=== PATIENT | female | born 1980 | race Caucasian/White ===

== ENCOUNTER → 2017-06-21 10:00 | Outpatient (CLI) | payer OTHER | END | disposition home or self-care (01) | LOC: D.US 10:00 | DX: E04.9 Nontoxic goiter, unspecified (principal) ==

== ENCOUNTER 2018-01-21 05:30 | Day surgery (SDC) | payer OTHER ==
[2018-01-17 10:19] LABS: BASOPHILS 0.5 % (0-2); EOSINOPHILS 1.6 % (0-7); HEMATOCRIT 34.7 % (36.0-48.0); HEMOGLOBIN 10.8 g/dL (12-16); IMMATURE GRANULOCYTES 0.3 % (0-5); LYMPHOCYTES 25.9 % (15-50); MCHC 31.1 g/dL (31.0-37.0); MCV 77.1 fL (80.0-100.0); MEAN PLATELET VOLUME 8.8 fL (7.4-10.4); MONOCYTES 7.3 % (2-11); NEUTROPHILS 64.4 % (40-80); PLATELET COUNT 331 10x3/uL (130-400); RDW 14.9 % (11.5-14.5); WBC 7.4 10x3/uL (4.8-10.8)
[2018-01-17 10:26] LABS: CALC OSMOLALITY 278 mosm/kg (275-300); CALCIUM 8.9 mg/dL (8.5-10.1); CARBON DIOXIDE 30.3 mmol/L (21.0-32.0); CHLORIDE - SERUM 103 mmol/L (98-107); CREATININE - SERUM 0.8 mg/dL (0.6-1.3); GLUCOSE 99 mg/dL (74-106); SODIUM 141 mmol/L (136-145); UREA NITROGEN 7 mg/dL (7-18); eGFR NON AFRICAN AMERICAN 85 mL/min (90-120)
[~2018-01-21] VITALS: Ht 162.6 cm; Wt 73.5 kg
--- NOTE | ~2018-01-21 | OP ---
PATIENT NAME: ARNOLDO REDDY MEDICAL RECORD: [id number] :76 LOCATION:[id number] ADMISSION DATE: SURGEON: PASTOR CUNNINGHAM MD DATE OF OPERATION: 01/21/2018 PREOPERATIVE DIAGNOSES: 1. Dysfunctional uterine bleeding. 2. Chronic pelvic pain. 3. Chronic left-sided pelvic pain. POSTOPERATIVE DIAGNOSES: 1. Dysfunctional uterine bleeding. 2. Chronic pelvic pain. 3. Chronic left-sided pelvic pain. PROCEDURE: 1. Diagnostic laparoscopy. 2. Right salpingectomy. 3. Laparoscopic subtotal hysterectomy. 4. Left salpingo-oophorectomy. SURGEON: Pastor Cunningham MD ANESTHESIOLOGIST: Dr. Ford ANESTHETIC: General. FINDINGS: Uterus is enlarged and boggy, finding suspicious for adenomyosis. The tubes are interrupted and otherwise unremarkable bilaterally. Right and left ovaries are also unremarkable. No active endometriosis is identified in the pelvis. SPECIMENS REMOVED: 1. Uterus without cervix. 2. Left ovary. 3. Bilateral tubes. SPECIMEN DISPOSITION: To Pathology. ESTIMATED BLOOD LOSS: Less than or equal to 100 cc. ESTIMATED BLOOD LOSS: 1500 cc of lactated Ringer's. URINE OUTPUT: 250 cc of clear urine. COMPLICATIONS: None. DRAINS: Flores to gravity. INDICATIONS: The patient is a 37-year-old female with tubal ligation for control with heavy periods and painful periods. The cycles are negative impact on quality of life. The patient has tried conservative therapy without resolution of her symptoms and desires definitive treatment. DESCRIPTION OF PROCEDURE: After informed consent, the patient was taken to the OPERATIVE REPORT [id number] ARNOLDO REDDY operating room where anesthetic was obtained without difficulty. The patient was supine on the table and prepped and draped in the usual sterile fashion after Flores was started. An incision was made at the umbilicus to accommodate a 5-mm trocar, which was inserted without difficulty and pneumoperitoneum developed. The patient was now in Trendelenburg position and accessory ports were placed in the right and left lower quadrants. Left lower quadrant port was a 10-12 Xcel port. All sites were injected prior to the incisions being made. The bowel was swept free of the pelvis with the patient in Trendelenburg position. The right tube was elevated and using a coagulation cutter, the attachments of the tube to the adnexa were serially compressed, coagulated, and . This dissection was carried out at above the ovary and medial, freeing the ovary from attachment to the uterus. Dissection was continued down the broad ligament and once the level of the internal os was reached, a Harmonic scalpel was used to develop the bladder flap just past the midline. The vessels on the right side were skeletonized, compressed, coagulated, and . Attention now directed to the left side of the pelvis. With the left ovary and tube elevated, again the coagulation cutter was used to compress, coagulate, and separate the ovary from its attachment to the infundibulopelvic ligament. The Gyrus coagulation cutter was now used to dissect lateral to the uterus visualizing the left vascular bundle. The Harmonic scalpel was now used to skeletonize these vessels further and to complete the bladder flap. The vessels were now compressed, coagulated, and on the left side. Using the Harmonic scalpel, the uterus was now removed from its attachment to the cervix. This begins on the left and was concluded on the right. Endocervical was now cauterized. After cauterizing the endocervical canal, a PlasmaSORD morcellator was inserted and the uterus removed in several segments. Pelvis was irrigated after the removal of the uterus and all small portions of the uterus then removed. The dissection field was inspected and found to be hemostatic. Interceed was placed over the cervical stump and the pneumoperitoneum was now released. Sponge, lap, and needle counts correct times 2. The skin was closed with a subcuticular stitch and a sterile dressing applied. TRANSINT:[id number] Voice Confirmation ID: [id number] DOCUMENT ID: [id number] PASTOR CUNNINGHAM MD at 1424 CC: [id number] DICTATION DATE: 01/21/18 0933 SUPERVISOR ENDLESS TRACK VEHICLE: 01/21/18 1226 [facility] [address] [id number]
[~2018-01-21 05:30] MED LIST: TYLENOL #4 W/CO1 TAB PO
[2018-01-21] MEDS ORDERED: LINZESS290 MCG PO (06:17)
[2018-01-21] MEDS ORDERED: VIMOVO 500-201 EACH PO (06:19)
[2018-01-21 06:40] VITALS: BP 133/83; Ht 162.6 cm; Wt 73.5 kg
[2018-01-21 07:11] LABS: HCG URINE NEGATIVE (NEGATIVE)
[2018-01-21 10:30] VITALS: BP 124/75
[2018-01-21 10:45] VITALS: BP 115/70
[2018-01-21 11:00] VITALS: BP 130/71
[2018-01-21 11:15] VITALS: BP 126/89
[2018-01-21] MEDS ORDERED: PERCOCET 5-3251 TAB PO (17:58)
[2018-01-21] MEDS ORDERED: IBUPROFEN800 MG PO (17:58)
== END 2018-01-21 19:00 | disposition home or self-care (01) ==
LOC: D.OPS 05:30 → D.LD 14:13 → D.OPS 19:00
PROVIDERS: Obstetrics & Gynecology
DX: D25.9 Leiomyoma of uterus, unspecified (principal); N83.02 Follicular cyst of left ovary; G89.29 Other chronic pain; N93.8 Other specified abnormal uterine and vaginal bleeding; Z01.812 Encounter for preprocedural laboratory examination